=== PATIENT | female | born 1975 | race Caucasian/White ===

== ENCOUNTER 2016-08-02 20:29 | Emergency (ER) | payer SELFPAY ==
--- NOTE | ~2016-08-02 | ER ---
PATIENT'S NAME: [facility] AGE: 40 Y [address] ROOM: [place] [id number] LOCATION: [facility] ADMIT DATE: 08/02/2016 ER/Outpatient Report DISCHARGE DATE: 08/02/2016 FAMILY PHYSICIAN: PHYSICIAN, NO ATTENDING PHYSICIAN: Robin Valle TIME SEEN: 2040 hours. CHIEF COMPLAINT: Headache. HISTORY OF PRESENT ILLNESS: The patient is a 40-year-old female who presents with complaints of headaches that she has had a history of migraines for several years; however, over the last 3 or 4 months, the headaches have become more frequent and more severe. She said the headache usually starts in the back and the neck and then works across to her forehead. She does experience some photophobia and dizziness with the headaches. The patient has been seen in the [facility] [facility] in the last few months and was given Toradol; otherwise, she takes ibuprofen as needed for pain. ALLERGIES: NONE. CURRENT MEDICATIONS: Include: 1. Ibuprofen. 2. Tylenol. MEDICAL HISTORY: Includes irritable bowel syndrome, COPD, and chronic headaches. SOCIAL HISTORY: Smoker half-pack a day. Does use marijuana occasionally. REVIEW OF SYSTEMS: GENERAL: Today, no fevers or chills today. HEAD/EENT: Includes the headaches, which tonight is mostly in her forehead. She has noticed some photophobia. Denies any stiff neck or sore throat. RESPIRATORY: No cough or wheezing. CARDIOVASCULAR: Denies any chest pain. GASTROINTESTINAL: No nausea or vomiting. NEURO/PSYCH: No numbness or tingling in her extremities. PATIENT'S NAME: [facility]IE [facility] AGE: 40 Y [address] ROOM: [place], [place] [address] LOCATION: [facility] ADMIT DATE: 08/02/2016 ER/Outpatient Report DISCHARGE DATE: 08/02/2016 FAMILY PHYSICIAN: PHYSICIAN, NO ATTENDING PHYSICIAN: Robin Valle PHYSICAL EXAMINATION: VITAL SIGNS: Blood pressure 147/88, her temp is 98.7, her respiratory rate 16, pulse 96, and her O2 sats 99%. GENERAL APPEARANCE: Appears somewhat older than her stated age. HEENT: Head: Normocephalic. No temporal tenderness. Hair was somewhat coarse. She did have a fairly large warty type lesion on the top of her head, which evidently has been there for quite sometime. She had no nuchal rigidity. Mouth: Oral membranes were moist. LUNGS: Sound clear. HEART: Regular rhythm. NEURO: Speech was clear. Gait and station normal. No focal neurological signs. ASSESSMENT: Headache. PLAN: My recommendations are more complete workup including a CT scan, lab work; however, the patient refused because of financial concerns. The patient was given Toradol 60 IM here in the emergency room. Advised to continue ibuprofen no more than 800 mg 3 times a day. [facility]. JON JOHNSON FOR MD DEEPTHI HARVEY/yeni /[id number] d: 08/03/16 0206 t: 08/04/16 1033, OUTPATIENT REPORT
== END 2016-08-02 21:05 | disposition disaster alternative care site (69) ==
LOC: GMED 20:29
DX: R51 Headache (principal); F17.210 Nicotine dependence, cigarettes, uncomplicated; J44.9 Chronic obstructive pulmonary disease, unspecified; K58.9 Irritable bowel syndrome, unspecified; Z79.899 Other long term (current) drug therapy
CPT/HCPCS: J1885